=== PATIENT | female | born 2000 | race Caucasian/White ===

== ENCOUNTER 2023-07-23 21:41 | Emergency (ER) | payer BC ==
[~2023-07-23] VITALS: Ht 165.1 cm; Wt 63.5 kg
== END 2023-07-24 02:39 | disposition home or self-care (01) ==
LOC: ED 21:41
DX: O21.0 Mild hyperemesis gravidarum (principal); Z3A.11 11 weeks gestation of pregnancy; Z20.822 Contact with and (suspected) exposure to COVID-19

== ENCOUNTER 2023-08-20 19:11 | Emergency (ER) | payer BC ==
[~2023-08-20] VITALS: Ht 167.6 cm; Wt 64.9 kg
[2023-08-20] MEDS ORDERED: PRENATAL VITAM1 EAC4 PO (20:26)
[2023-08-20 21:03] LABS: BASO % 0.3 % (0.0-1.0); EOS % 0.3 % (1.0-4.0); HEMATOCRIT 37.9 % (37.0-47.0); LYMPH # 0.5 10*3/uL (1.3-4.4); LYMPH % 15.6 % (27.0-41.0); MEAN CELL VOLUME 89.4 fl (81.0-99.0); MEAN CORPUSCULAR HGB CONC 33.5 g/dl (33.0-37.0); MEAN PLATELET VOLUME 10.6 fl (9.6-12.3); MONO # 0.3 10*3/uL (0.1-1.0); MONO % 11.6 % (3.0-9.0); NEUT # 2.1 10*3/uL (2.3-7.9); NEUT % 71.9 % (47.0-73.0); PLATELET COUNT AUTOMATED 189 10*3/uL (130-400); RED BLOOD COUNT 4.24 10*6/uL (4.10-5.10); RED CELL DISTRI WIDTH 12.7 % (0-14.5); WHITE BLOOD COUNT 2.9 10*3/uL (4.8-10.8)
[2023-08-20 21:37] LABS: ALKALINE PHOSPHATASE 47 U/L (46-116); BUN 7 mg/dl (9-23); CHLORIDE 103 mmol/L (98-107); LIPASE 24 U/L (12-53); POTASSIUM 3.2 mmol/L (3.4-5.1); SGPT/ALT 20 U/L (5-49); TOTAL PROTEIN 6.3 gm/dL (6.0-8.0)
[2023-08-20 22:24] LABS: BILIRUBIN Negative (Negative); BLOOD Negative (Negative); CLARITY Cloudy (Clear); COLOR Yellow (Yellow); GLUCOSE Negative (Negative); KETONE 3+ (Negative); LEUKO ESTERASE 1+ (Negative); NITRITE Negative (Negative); SPECIFIC GRAVITY 1.015 (1.001-1.030)
[2023-08-20 22:38] LABS: EPITHELIAL CELLS TNTC
[2023-08-20 22:39] LABS: BACTERIA 2+; WBC 16-20 wbc/hpf (0-5); YEAST TRACE
== END 2023-08-21 04:38 | disposition home or self-care (01) ==
LOC: ED 19:11
PROVIDERS: Emergency Medicine
DX: O21.9 Vomiting of pregnancy, unspecified (principal); O26.892 Other specified pregnancy related conditions, second trimester; Z20.822 Contact with and (suspected) exposure to COVID-19; D72.819 Decreased white blood cell count, unspecified; R19.7 Diarrhea, unspecified; Z88.0 Allergy status to penicillin; Z3A.15 15 weeks gestation of pregnancy; Z79.899 Other long term (current) drug therapy

== ENCOUNTER 2024-03-13 22:48 | Emergency (ER) | payer BC ==
[~2024-03-13] VITALS: Ht 167.6 cm; Wt 68.0 kg
[~2024-03-13 22:48] MED LIST: PRENATAL VITAM1 EAC4 PO
[2024-03-13] MEDS ORDERED: CLEOCIN HCL150 MG PO (22:59)
[2024-03-13] MEDS ORDERED: Cleocin150 MG PO (23:00)
[2024-03-14] MEDS ORDERED: Ketorolac Tromethamine 30 MG/ML VIAL IM ONE (00:15)
[2024-03-14] MEDS ORDERED: NAPROXEN250 MG PO (00:18)
[2024-03-14] MEDS ORDERED: ACETAMINOPHEN 325 MG TAB PO ONE (00:25)
== END 2024-03-14 00:24 | disposition home or self-care (01) ==
LOC: ED 22:48
DX: S40.012A Contusion of left shoulder, initial encounter (principal); Z88.0 Allergy status to penicillin; W01.0XXA Fall on same level from slipping, tripping and stumbling without subsequent striking against object, initial encounter; Y93.89 Activity, other specified; Y92.009 Unspecified place in unspecified non-institutional (private) residence as the place of occurrence of the external cause; Y99.8 Other external cause status